=== PATIENT | female | born 1985 | race Caucasian/White ===

== ENCOUNTER 2016-06-09 13:41 | Outpatient (CLI) | payer OTHER ==
[~2016-06-09] VITALS: Ht 177.8 cm; Wt 100.0 kg
[2016-06-09 14:28] VITALS: BP 117/71
[2016-06-09] MEDS ORDERED: PRENATAL VITAM1 EA11 PO (14:55)
[2016-06-09] MEDS ORDERED: PERCOCET 5/31 TABLET PO (14:57)
[2016-06-09] MEDS ORDERED: ZOLOFT100 MG PO (14:57)
== END 2016-06-09 15:10 | disposition home or self-care (01) ==
LOC: LDRP-OP 13:41 → 2WEST 13:42 → LDRP-OP 07-19 20:33
DX: O36.8190 Decreased fetal movements, unspecified trimester, not applicable or unspecified (principal); Z3A.00 Weeks of gestation of pregnancy not specified
CPT/HCPCS: 59025; G0378

== ENCOUNTER 2016-06-10 14:09 | Outpatient (CLI) | payer OTHER ==
[~2016-06-10] VITALS: Ht 177.8 cm; Wt 102.0 kg
[~2016-06-10 14:09] MED LIST: PERCOCET 5/31 TABLET PO; PRENATAL VITAM1 EA11 PO; ZOLOFT100 MG PO
[2016-06-10 14:24] VITALS: BP 116/77
[2016-06-10 14:51] LABS: EOSINOPHIL (%) 0.5 % (0-5); EOSINOPHIL COUNT 0.1 K/uL (0-0.3); HEMATOCRIT 35.1 % (36.0-46.0); IMMATURE GRANULOCYTE (%) 0.2 % (0.0-0.7); MCH 26.6 PG (29.0-34.0); MCHC 31.6 G/DL (30.0-36.0); MEAN PLAT.VOLUME 11.7 uM^3 (9.5-12.4); MONOCYTE (%) 5.3 % (3-12); MONOCYTE COUNT 0.5 K/uL (0-0.8); NEUTROPHIL (%) 72.9 % (45-76); NEUTROPHIL COUNT 6.9 K/uL (1.8-6.4); PLATELET COUNT 247 K/uL (156-360); RBC DIS.WIDTH-CV 13.5 % (11.8-14.6); RBC DIS.WIDTH-SD 40.8 % (39-53); RED BLOOD COUNT 4.18 M/uL (3.80-5.20); WHITE BLOOD COUNT 9.4 K/uL (4.1-10.2)
[2016-06-10 15:06] LABS: ANION GAP 8 MEQ/L (2-14); CHLORIDE 105 MEQ/L (99-109); POTASSIUM 3.7 MEQ/L (3.7-5.4); SAMPLE HEMOLYSIS CHECK 0; SAMPLE ICTERIC CHECK 0; SAMPLE LIPEMIA CHECK 0; SODIUM 133 MEQ/L (136-147); TOTAL BILIRUBIN 0.3 MG/DL (0.0-1.0)
[2016-06-10 15:12] LABS: ALKALINE PHOSPHATASE 138 IU/L (3-129); GFR ESTIMATE (CALCULATED) > 59 mL/min/; GLUCOSE 81 mg/dL (70-99); UREA NITROGEN (BUN) 8 mg/dL (9-23)
[2016-06-10 15:27] LABS: ADD MIUA? YES; BILIRUBIN NEGATIVE; BLOOD NEGATIVE; COLOR YELLOW ((YELLOW)); GLUCOSE (STRIP) NEGATIVE; KETONES NEGATIVE; LEUKOCYTES NEGATIVE; NITRITE NEGATIVE; PROTEIN (STRIP) NEGATIVE; SPECIFIC GRAVITY 1.015 (1.000-1.030); UROBILINOGEN 0.2 MG/DL (0.2-1.0)
[2016-06-10 15:28] VITALS: BP 111/71
[2016-06-10 15:35] LABS: UR CREATININE CONCENTRATION 142.2 MG/DL
[2016-06-10 15:42] VITALS: BP 145/68
[2016-06-10 16:44] LABS: BACTERIA NONE SEEN /HPF; EPITHELIAL CELLS RARE /HPF; MUCUS 1+ /LPF; RED BLOOD CELLS 0-5 /HPF (0-5); UCUL ADDED? NO; WHITE BLOOD CELLS 0-5 /HPF (0-5); WHITE BLOOD CELLS CLUMP RARE /HPF (0-5)
== END 2016-06-10 16:05 | disposition home or self-care (01) ==
LOC: LDRP-OP 14:09 → 2WEST 14:10 → LDRP-OP 07-19 15:18
PROVIDERS: Advanced Practice Midwife
DX: O99.89 Other specified diseases and conditions complicating pregnancy, childbirth and the puerperium (principal); Z3A.38 38 weeks gestation of pregnancy; R51 Headache; R10.11 Right upper quadrant pain; H43.393 Other vitreous opacities, bilateral
CPT/HCPCS: 59025; 80053; 81003; 82570; 84156; 85025; G0378

== ENCOUNTER 2016-06-14 07:11 | Inpatient (IN) | payer OTHER ==
[2016-06-14] VITALS (24 sets, daily range): BP systolic 103–134; BP diastolic 56–77
[2016-06-14 08:05] LABS: HEMATOCRIT 32.7 % (36.0-46.0); MCH 27.8 PG (29.0-34.0); MCHC 32.7 G/DL (30.0-36.0); MCV 84.9 FL (83-99); MEAN PLAT.VOLUME 11.9 uM^3 (9.5-12.4); PLATELET COUNT 219 K/uL (156-360); RBC DIS.WIDTH-CV 13.7 % (11.8-14.6); RBC DIS.WIDTH-SD 41.4 % (39-53); RED BLOOD COUNT 3.85 M/uL (3.80-5.20); WHITE BLOOD COUNT 7.5 K/uL (4.1-10.2)
[2016-06-14 08:08] LABS: EOSINOPHIL (%) 0.9 % (0-5); EOSINOPHIL COUNT 0.1 K/uL (0-0.3); IMMATURE GRANULOCYTE (%) 0.3 % (0.0-0.7); LYMPHOCYTE COUNT 1.3 K/uL (1.0-2.8); MONOCYTE COUNT 0.5 K/uL (0-0.8); NEUTROPHIL (%) 75.7 % (45-76); NEUTROPHIL COUNT 5.7 K/uL (1.8-6.4)
[2016-06-14 08:24] LABS: ANION GAP 9 MEQ/L (2-14); CHLORIDE 106 MEQ/L (99-109); POTASSIUM 4.3 MEQ/L (3.7-5.4); SAMPLE HEMOLYSIS CHECK 0; SAMPLE ICTERIC CHECK 0; SAMPLE LIPEMIA CHECK 0; SODIUM 135 MEQ/L (136-147); TOTAL BILIRUBIN 0.3 MG/DL (0.0-1.0)
[2016-06-14 08:30] LABS: ALKALINE PHOSPHATASE 136 IU/L (3-129); GFR ESTIMATE (CALCULATED) > 59 mL/min/; GLUCOSE 81 mg/dL (70-99); UREA NITROGEN (BUN) 8 mg/dL (9-23)
[2016-06-15] VITALS (10 sets, daily range): BP systolic 96–138; BP diastolic 54–81
[2016-06-15] MEDS ORDERED: IBUPROFEN800 MG PO (01:40)
[2016-06-16 06:53] LABS: EOSINOPHIL (%) 1.8 % (0-5); EOSINOPHIL COUNT 0.1 K/uL (0-0.3); HEMATOCRIT 32.3 % (36.0-46.0); IMMATURE GRANULOCYTE (%) 0.1 % (0.0-0.7); LYMPHOCYTE COUNT 2.3 K/uL (1.0-2.8); MCH 26.3 PG (29.0-34.0); MEAN PLAT.VOLUME 11.4 uM^3 (9.5-12.4); MONOCYTE (%) 5.1 % (3-12); MONOCYTE COUNT 0.4 K/uL (0-0.8); NEUTROPHIL (%) 63.9 % (45-76); PLATELET COUNT 191 K/uL (156-360); RBC DIS.WIDTH-CV 13.7 % (11.8-14.6); RBC DIS.WIDTH-SD 41.8 % (39-53); WHITE BLOOD COUNT 7.8 K/uL (4.1-10.2)
[2016-06-16 07:30] VITALS: BP 113/76
[2016-06-16 14:46] VITALS: BP 126/60
[2016-06-16 23:20] VITALS: BP 128/76
[2016-06-17 07:30] VITALS: BP 113/73
[2016-06-17] MEDS ORDERED: ENDOCET 5-3251 EACH PO (10:56)
[2016-06-17 15:18] VITALS: BP 137/78
== END 2016-06-17 16:15 | disposition home or self-care (01) | DRG 775 ==
LOC: LDRP-OP 07:11 → 2WEST 07:12 → LDRP-OP 12:33 → 2WEST 06-15 01:15 → LDRP-OP 07-19 00:41
PROVIDERS: Obstetrics & Gynecology
PROC: 00HU33Z Insertion of Infusion Device into Spinal Canal, Percutaneous Approach (ICD-10-PCS; principal; 2016-06-14)
PROC: 10907ZC Drainage of Amniotic Fluid, Therapeutic from Products of Conception, Via Natural or Artificial Opening (ICD-10-PCS; principal; 2016-06-14)
PROC: 3E0S3CZ (ICD-10-PCS; principal; 2016-06-14)
PROC: 3E0P7GC Introduction of Other Therapeutic Substance into Female Reproductive, Via Natural or Artificial Opening (ICD-10-PCS; principal; 2016-06-14)
PROC: 10D07Z6 Extraction of Products of Conception, Vacuum, Via Natural or Artificial Opening (ICD-10-PCS; 2016-06-15)
DX: O13.4 Gestational [pregnancy-induced] hypertension without significant proteinuria, complicating childbirth (principal); F60.5 Obsessive-compulsive personality disorder; Z37.0 Single live birth; O76 Abnormality in fetal heart rate and rhythm complicating labor and delivery; F51.05 Insomnia due to other mental disorder; F32.9 Major depressive disorder, single episode, unspecified; E66.9 Obesity, unspecified; O99.214 Obesity complicating childbirth; Z3A.39 39 weeks gestation of pregnancy; O99.344 Other mental disorders complicating childbirth; Z68.30 Body mass index [BMI] 30.0-30.9, adult
CPT/HCPCS: 80053; 85025; C1755; G0378; J3010; J7120